=== PATIENT | male | born 1975 | race Caucasian/White ===

== ENCOUNTER 2021-04-11 14:29 | Emergency (ER) | payer OTHER, SELFPAY ==
[2021-04-11 14:31] VITALS: BP 160/91; PULSE 61; RESP 20; TEMP 36.6; O2SAT 99
--- NOTE | 2021-04-11 14:35 | DI.RAD.S_ITS ---
PROCEDURE: XR ELBOW RT MIN 3V INDICATIONS: fall TECHNIQUE: 3 views of the elbow were acquired. COMPARISON: None. FINDINGS: Bones: No fractures or dislocations. No suspicious bony lesions. Soft tissues: No elbow joint effusion. No suspicious soft tissue calcifications. IMPRESSION: No displaced fractures are seen on these plain films. If there is focal tenderness, or other clinical concern for a fracture not seen on these images in this patient with a given history of trauma, please consider a dedicated CT or a short-term followup plain film series (in 1-2 weeks) for further evaluation. Dictated by: Arben Burroughs M.D. on 04/11/2021 at 14:17 Approved by: Arben Burroughs M.D. on 04/11/2021 at 14:18
--- NOTE | 2021-04-11 19:14 | ED.UPPEXIN ---
HPI - Extremity Injury (Upper) General Chief Complaint: Extremity Injury, Upper Stated Complaint: Right elbow injury-sent by [facility] for Xray Time Seen by Provider: 04/11/21 19:13 Source: patient Mode of arrival: Ambulatory Limitations: no limitations History of Present Illness HPI narrative: 45-year-old male comes to the emergency depart with right elbow injury. Patient slipped and fell directly on his right elbow on a wooden floor yesterday. Patient states there is a flap or. He washed it out. He has pain right over the distal point of the elbow. He denies injury elsewhere. No numbness, tingling or weakness. He believes his tetanus is up-to-date. Medical issues. No allergies to medications. Patient lives on [facility] which delayed him presenting. Related Data Allergies Allergy/AdvReac Type Severity Reaction Status Date / Time No Known Drug Allergies Allergy Verified 04/11/21 19:45 Review of Systems Review of Systems ROS Unobtainable: All systems reviewed & are unremarkable except as noted in HPI and below Exam Narrative Exam Narrative: GENERAL: Alert and oriented x three, male in mild distress. HEENT: Head normocephalic, atraumatic, EOMI, pupils reactive, face symmetric, moist mucous membranes NECK: Supple, full range of motion EXTREMITIES: Normal range of motion, no clubbing or edema. Neurovascularly intact. Full range of motion. 5/5 muscle strength. Patient has a v-shaped laceration which is 0.5cm in total length which is slightly macerated at the point of the elbow. There is small amount of subcutaneous tissue exposed particular when patient flexes at the elbow. NEUROLOGICAL: Cranial nerves II through XII grossly intact. Moving all extremities SKIN: Warm, dry, no petechiae, no rashes or lesions. Initial Vital Signs Initial Vital Signs: Vital Signs Temperature 97.8 F 04/11/21 14:31 Pulse Rate 61 04/11/21 14:31 Respiratory Rate 20 04/11/21 14:31 Blood Pressure 160/91 H 04/11/21 14:31 Pulse Oximetry 99 04/11/21 14:31 Procedures Laceration Repair Laceration 1: Time of procedure: 19:42 Site: other (Right elbow) Side (If applicable): right Size (cm): 0.5 Description: flap (V shape) Depth: simple, single layer Local Anesthetic: lidocaine 1% Amount of anesthesia used (mL): 1 Pre-repair: wound explored, irrigated extensively and deep structures intact Skin layer closed with: steri-strips Size (cm): 4-0 Number of sutures: 2 Technique: simple, interrupted Course Orders Ordered: Discontinued Medications Lidocaine/Sodium Bicarbonate (Lido 1%/Sod Bicarb 8.4% (10ml) 10 Ml Syringe) 10 ml INJ NOW ONE Stop: 04/11/21 19:24 Last Admin: 04/11/21 19:46 Dose: 10 ml Documented by: NASIR Vital Signs Vital signs: Vital Signs - 8 hr 04/11/21 14:31 Temperature 97.8 F Pulse Rate 61 Respiratory Rate 20 Blood Pressure 160/91 H Pulse Oximetry 99 MDM - Extremity Injury (Upper) Imaging Data Extremity x-ray #1: Radiologist's Impression: [address] [address] XRay Report Signed Patient: Joseph Sinclair MR#: [id number] : 1975 Acct:[id number] Age/Sex: 45 / M Date of Service: 04/11/21 Loc: ED Accession Number: [id number] ?? Procedure: XR elbow RT min 3V Ordering Provider: Kaitlin Gay D.O. PROCEDURE:? XR ELBOW RT MIN 3V ? INDICATIONS:? fall ? TECHNIQUE:? 3 views of the elbow were acquired.? ? COMPARISON:? None. ? FINDINGS:? ? Bones:? No fractures or dislocations.? No suspicious bony lesions.? ? Soft tissues:? No elbow joint effusion.? No suspicious soft tissue calcifications.? ? ? IMPRESSION:? ? No displaced fractures are seen on these plain films.? ? If there is focal tenderness, or other clinical concern for a fracture not seen on these images in this patient with a given history of trauma, please consider a dedicated CT or a short-term followup plain film series (in 1-2 weeks) for further evaluation.? ? ? Dictated by: Arben Burroughs M.D. on 04/11/2021 at 14:17 ? ? Approved by: Arben Burroughs M.D. on 04/11/2021 at 14:18?? MDM Narrative Medical decision making narrative: 45-year-old male with right elbow injury with a very small laceration but is gapped with some subcutaneous exposure. Two sutures were placed to help enhance closure. Patient was within 24 hours so felt appropriate. Wound was clean patient cleaned at home. Was not started on oral antibiotics at this point. No fracture to the elbow with normal exam otherwise. Return precautions discussed. Discharge Plan Departure Patient Disposition: Home Clinical Impression: Laceration of elbow, right Instructions: DI for Laceration Repair -- Simple Activity Restrictions/Additional Instructions: Follow-up in 7-10 days for suture removal. You may take Tylenol and or ibuprofen as needed for pain. Your x-ray imaging today is negative Wound Care: Keep wound(s) clean and dry. Wash daily with soap and water only. Do not use over the counter products (alcohol or peroxide)on the wounds unless instructed by a physician. You may use a topical triple antibiotic ointment to the affected area twice daily. If wound condition worsens (increased/expanding redness, developing fluid blisters, or worsening pain), either contact your doctor for an urgent re-assessment , or return to the Emergency Department. Return to the Emergency Department for any new or worsening symptoms. Return if fever greater than 100.4 Fahrenheit, increased swelling, increasing pain or worsening symptoms such as increased discharge or spreading redness.
[2021-04-11] MEDS: LIDO 1%/SOD BICARB 8.4% (10ML) 10 ML SYRINGE INJ (19:46)
== END 2021-04-11 19:50 | disposition home or self-care (01) ==
PROVIDERS: Emergency Provider Emergency Medicine
DX: S51.011A Laceration without foreign body of right elbow, initial encounter (principal); W01.10XA Fall on same level from slipping, tripping and stumbling with subsequent striking against unspecified object, initial encounter
CPT/HCPCS: 12001; 73080; 99283; 99284